=== PATIENT | female | born 1970 | race Caucasian/White ===

== ENCOUNTER → 2017-06-25 | Outpatient (CLI) | payer OTHER | END | disposition home or self-care (01) | LOC: LAB SHORT 07:35 → PLD 07:35 | DX: L30.9 Dermatitis, unspecified (principal) | CPT/HCPCS: 88305; 88312 ==

== ENCOUNTER → 2024-07-25 | Outpatient (CLI) | payer OTHER ==
[2024-08-02 09:24] LABS: HPV HIGH RISK BY TMA Not Detected; HPV SOURCE Cervical
== END ==
LOC: LAB SHORT 11:45 → LAB 11:45
PROVIDERS: Physician Assistant
DX: Z01.419 Encounter for gynecological examination (general) (routine) without abnormal findings (principal)
CPT/HCPCS: 87624; G0123